=== PATIENT | female | born 1960 | race Caucasian/White ===

== ENCOUNTER 2016-11-08 10:35 | Emergency (ER) | payer MEDICAID ==
[~2016-11-08] VITALS: Ht 149.9 cm; Wt 74.8 kg
--- NOTE | 2016-11-08 11:14 | NUR ---
Patient discharged to home in stable conditon. Written and verbal after care instructions given. Patient verbalizes understanding of instructions.pt with a friend.
[2016-11-08] MEDS ORDERED: NEOMY/BACITRA/POLYMYXIN B OINT UD PACKET TP ONE ×2 (11:15→11:19)
== END 2016-11-08 11:20 | disposition home or self-care (01) ==
LOC: ER 10:35
DX: Z48.02 Encounter for removal of sutures (principal)
CPT/HCPCS: 99282; A4663